=== PATIENT | female | born 1985 | race Caucasian/White ===

== ENCOUNTER 2018-03-22 17:38 | Emergency (ER) | payer OTHER ==
[2018-03-22 17:48] VITALS: BP 140/84; PULSE 90; TEMP 98.4; BMI 32.1
--- NOTE | 2018-03-22 18:20 | PDOC ---
History of Present Illness - History of Present Illness Initial Comments: 03/22/18 18:31 Patient is a 32 F, with no significant past medical history, who presents today with 2 days of right sided facial numbness and tingling. Patient states that she noticed decreased sensation to the right side of her face for the past two days. She first noticed the facial droop when she began drooling while drinking some water. She also notes a decreased ability to close eyes tightly. She also reports mild right sided headache. She denies nausea, vomiting, chest pain, shortness of breath. She denies loss of consciousness. Denies decreased sensation in her extremities. She denies history of recent trauma. Dr. Mehul Avitia - PCP <Sarah Urbina - Last Filed: 03/22/18 18:31> <Rossi Colon - Last Filed: 03/22/18 20:25> - General Chief Complaint: Facial Droop Stated Complaint: PAIN Time Seen by Provider: 03/22/18 17:59 Past History <aSrah Urbina - Last Filed: 03/22/18 18:31> - Past Medical History Anemia: No Asthma: No Cancer: No Cardiac Disorders: No CVA: No COPD: No CHF: No Dementia: No Diabetes: No GI Disorders: No Disorders: No HTN: No Hypercholesterolemia: No Liver Disease: No Seizures: No Thyroid Disease: No Other medical history: PT DENIES. - Suicide/Smoking/Psychosocial Hx Smoking History: Never smoked Hx Alcohol Use: No Drug/Substance Use Hx: No Substance Use Type: Alcohol Hx Substance Use Treatment: No <Rossi Colon - Last Filed: 03/22/18 20:25> - Past Medical History Allergies/Adverse Reactions: Allergies Allergy/AdvReac Type Severity Reaction Status Date / Time No Known Drug Allergies Allergy Verified 03/22/18 17:42 Home Medications: Ambulatory Orders No Home Medications 08/19/13 Carboxymethylcellulose Sodium [Lubricant Dry Eye Relief] 15 ml OP PRN PRN #1 bottle 03/22/18 Prednisone [Deltasone] 60 mg PO DAILY #4 tablet 03/22/18 Valacyclovir HCl [Valtrex -] 500 mg PO BID #10 tablet 03/22/18 Review of Systems - Review of Systems Comments:: 03/22/18 18:32 CONSTITUTIONAL: Absent: fever, chills, diaphoresis, generalized weakness, malaise, loss of appetite HEENT: Absent: rhinorrhea, nasal congestion, throat pain, throat swelling, difficulty swallowing, mouth swelling, ear pain, eye pain, visual changes CARDIOVASCULAR: Absent: chest pain, syncope, palpitations, irregular heart rate, lightheadedness , peripheral edema RESPIRATORY: Absent: cough, shortness of breath, dyspnea with exertion, orthopnea, wheezing, stridor, hemoptysis GASTROINTESTINAL: Absent: abdominal pain, abdominal distension, nausea, vomiting, diarrhea, constipation, melena, hematochezia GENITOURINARY: Absent: dysuria, frequency, urgency, hesitancy, hematuria, flank pain, genital pain MUSCULOSKELETAL: Absent: myalgia, arthralgia, joint swelling SKIN: Absent: rash, itching, pallor HEMATOLOGIC/IMMUNOLOGIC: Absent: easy bleeding, easy bruising, lymphadenopathy, frequent infections ENDOCRINE: Absent: unexplained weight gain, unexplained weight loss, heat intolerance, cold intolerance NEUROLOGIC: Present: Right sided headache. Right sided facial droop, Right sided facial numbness and tingling. Absent: dizziness, unsteady gait, seizure, mental status changes, bladder or bowel incontinence PSYCHIATRIC: Absent: anxiety, depression, suicidal or homicidal ideation, hallucinations. <Sarah Urbina - Last Filed: 03/22/18 18:31> *Physical Exam - Vital Signs Last Vital Signs Temp Pulse Resp BP Pulse Ox 98.4 F 90 19 140/84 100 03/22/18 17:43 03/22/18 17:43 03/22/18 17:43 03/22/18 17:43 03/22/18 17:43 - Physical Exam Comments: 03/22/18 18:35 GENERAL: Well developed, well nourished. Awake and alert. No acute distress. HEENT: Mild right facial droop, atraumatic. PERRLA, EOMI. No conjunctival pallor. Sclera are non-icteric. Moist mucous membranes. Oropharynx is clear.Right sided tongue numbness. No dental pain or abscess. NECK: Supple. Full ROM. No JVD. Carotid pulses 2+ and symmetric, without bruits. No thyromegaly. No lymphadenopathy. CARDIOVASCULAR: Regular rate and rhythm. No murmurs, rubs, or gallops. Distal pulses are 2+ and symmetric. PULMONARY: No evidence of respiratory distress. Lungs clear to auscultation bilaterally. No wheezing, rales or rhonchi. ABDOMINAL: Soft. Non-tender. Non-distended. No rebound or guarding. No organomegaly. Normoactive bowel sounds. MUSCULOSKELETAL Normal range of motion at all joints. No bony deformities or tenderness. No CVA tenderness. EXTREMITIES: No cyanosis. No clubbing. No edema. No calf tenderness. SKIN: Warm and dry. Normal capillary refill. No rashes. No jaundice. NEUROLOGICAL: Alert, awake, appropriate. Cranial nerves 2-12 intact. No deficits to light touch and temperature in face, upper extremities and lower extremities. No motor deficits in the in face, upper extremities and lower extremities. Normoreflexic in the upper and lower extremities. Normal speech. Toes are down-going bilaterally. Gait is normal without ataxia. PSYCHIATRIC: Cooperative. Good eye contact. Appropriate mood and affect. <Sarah Urbina - Last Filed: 03/22/18 18:31> - Vital Signs Last Vital Signs Temp Pulse Resp BP Pulse Ox 98.4 F 90 19 140/84 100 03/22/18 17:43 03/22/18 17:43 03/22/18 17:43 03/22/18 17:43 03/22/18 17:43 <Rossi Colon - Last Filed: 03/22/18 20:25> Medical Decision Making - Medical Decision Making 03/22/18 19:54 32-year-old female presents with right-sided facial tingling and numbness, noted to have some drooling when she drinks liquids since Friday. Patient has had no other gross focal neural deficits, except for this right sided facial tingling and numbness, she has no motor strength deficits, no drift of her extremities, she is alert and oriented 3 03/22/18 20:04 CAT scan of the head without contrast is essentially negative for any acute infarction, no hemorrhage, no mass lesion seen, no skull fracture, visualized portions of the paranasal sinuses are essentially clear. Mastoid air cells are normal. Impression Blanco's palsy Plan patient will be placed on steroids , eyedrops and encouraged follow-up with neurology <Rossi Colon - Last Filed: 03/22/18 20:25> *DC/Admit/Observation/Transfer - Attestations Scribe Attestion: 03/22/18 18:38 Documentation prepared by Sarah Urbina, acting as medical center manager for Rossi Colon MD. <Sarah Urbina - Last Filed: 03/22/18 18:31> <Rossi Colon - Last Filed: 03/22/18 20:25> Diagnosis at time of Disposition: Blanco palsy - Discharge Dispostion Disposition: HOME Condition at time of disposition: Stable - Prescriptions Prescriptions: Carboxymethylcellulose Sodium [Lubricant Dry Eye Relief] 15 ml OP PRN PRN #1 bottle PRN Reason: Dry Eyes Prednisone [Deltasone] 60 mg PO DAILY #4 tablet Valacyclovir HCl [Valtrex -] 500 mg PO BID #10 tablet - Referrals Referrals: Swati Emerson MD [Primary Care Provider] - Kana Franklin MD [Staff Physician] - - Patient Instructions Printed Discharge Instructions: DI for Blanco's Palsy Additional Instructions: please picker packer your medications at your pharmacy Please make an appointment with a neurologist return for any worsening symptoms Print Language: [place]
[2018-03-22] MEDS ORDERED: ACETAMINOPHEN 325 MG TABLET (FP) ONE (18:47)
[2018-03-22] MEDS ORDERED: ACETAMINOPHEN 500 MG TABLET (FP) PO STA (19:03)
--- NOTE | 2018-03-22 19:54 | PDOC ---
NIH Stroke Scale - Last Known Well Date/Time & Onset Date Last Known Well: 03/13/18 Time Last Known Well: 08:00 - Initial Evaluation Level of consciousness: Alert Ask patient the month and their age: Answers both correctly Ask patient to open & close eyes; make fist and let go: Obeys both correctly Best gaze (horizontal eye movement): Normal Visual field testing: No visual field loss Facial paresis (Show teeth/raise eyebrows/close eyes tight): Minor paralysis ( flattened nasolabial fold, asymmetry on smiling) Motor Function: Left Arm: Normal Motor Function: Right Arm: Normal (extends arm 90 (or 45) degrees for 10 seconds without drift Motor Function: Left Leg: Normal (extends leg 30 degrees for 5 seconds without drift) Motor Function: Right Leg: Normal (extends leg 30 degrees for 5 seconds without drift) Limb Ataxia: No ataxia Sensory(Use pinprick test arms,legs,trunk,face/side to side): Normal Best language (Describe picture, name items, read sentences): No Aphasia Dysarthria (read several words): Normal articulation Extinction and Inattention: No abnormality - Total Score NIH Stroke Scale Score: 1
[2018-03-22] MEDS ORDERED: predniSONE 20 MG TABLET (UD) PO ONE (20:13)
[2018-03-22] MEDS ORDERED: ERYTHROMYCIN 0.5% OPHTHALMIC OINTMENT 3.5 GM TUBE OD STA (20:14)
[2018-03-22] MEDS ORDERED: predniSONE 20 MG TABLET (UD) ONE (20:15)
[2018-03-22] MEDS ORDERED: ERYTHROMYCIN 0.5% OPHTHALMIC OINTMENT 3.5 GM TUBE ONE (20:18)
== END 2018-03-22 20:27 | disposition home or self-care (01) ==
LOC: JER 17:38
DX: G51.0 Bell's palsy (principal)
CPT/HCPCS: 36415; 70450-TC; 84703; 86618; 99283-25

== ENCOUNTER 2020-10-22 02:03 | Inpatient (IN) | payer OTHER ==
[2020-10-22] MEDS ORDERED: ACETAMINOPHEN INJECTION 100 ML IVPB ONE (02:57)
[2020-10-22] MEDS ORDERED: ONDANSETRON 4 MG/2 ML VIAL ONE (02:57)
[2020-10-22] MEDS ORDERED: SODIUM CHLORIDE 0.9% 500 ML INFUS.BAG IV ONE (03:04)
[2020-10-22] MEDS ORDERED: ONDANSETRON 4 MG/2 ML VIAL IVPUSH ONE (03:04)
[2020-10-22] MEDS ORDERED: ACETAMINOPHEN 1000 MG/100 ML VIAL (NON FORMULARY) IVPB ONE (03:04)
[2020-10-22 03:19] LABS: BASO % 0.6 % (0-2.0); EOS % 0.3 % (0-4.5); HEMATOCRIT 36.9 % (32.4-45.2); HEMOGLOBIN 11.8 GM/dL (10.7-15.3); LYMPH % 16.4 % (8-40); MCH 24.9 pg (25.7-33.7); MCHC 31.9 g/dl (32.0-36.0); MEAN CELL VOLUME 78.1 fl (80-96); MEAN PLT VOLUME 8.6 fl (7.5-11.1); MONO % 4.9 % (3.8-10.2); NEUT % 77.8 % (42.8-82.8); PLATELET COUNT 312 K/MM3 (134-434); RBC 4.73 M/mm3 (3.60-5.2); RDW 14.8 % (11.6-15.6); WHITE BLOOD COUNT 12.2 K/mm3 (4.0-10.0)
[2020-10-22 03:32] LABS: INR 1.04 (0.83-1.09); PROTHROMBIN TIME (PATIENT) 12.6 SEC (9.7-13.0)
[2020-10-22 03:39] LABS: PH,URINE 7.5 (5.0-8.0); URINE APPEARANCE TURBID; URINE BILIRUBIN NEGATIVE (NEGATIVE); URINE COLOR YELLOW; URINE GLUCOSE (UA) NEGATIVE (NEGATIVE); URINE KETONE NEGATIVE (NEGATIVE); URINE LEUK ESTERASE NEGATIVE (NEGATIVE); URINE NITRITE NEGATIVE (NEGATIVE); URINE PROTEIN NEGATIVE (NEGATIVE)
[2020-10-22 03:41] LABS: POTASSIUM 3.7 mmol/L (3.5-5.1)
[2020-10-22 03:43] LABS: CALCIUM 8.5 mg/dL (8.5-10.1)
[2020-10-22 03:44] LABS: ALBUMIN 3.6 g/dl (3.4-5.0); BLOOD UREA NITROGEN 12.6 mg/dL (7-18)
[2020-10-22 03:47] LABS: CREATININE 0.7 mg/dL (0.55-1.3)
[2020-10-22 03:48] LABS: BILIRUBIN,TOTAL 0.2 mg/dL (0.2-1); TOT PROT 7.5 g/dl (6.4-8.2)
[2020-10-22] MEDS ORDERED: morphine CARPU-JECT 4 MG/1 ML DISP.SYRIN IVPUSH ONE ×2 (04:27→07:56)
[2020-10-22] MEDS ORDERED: MORPHINE SULFATE 2 MG/ML VIAL ONE (04:40)
[2020-10-22] MEDS ORDERED: morphine SULFATE 4 MG/ML VIAL ONE (08:00)
[2020-10-22] MEDS ORDERED: CEFTRIAXONE 1,000 MG in DEXTROSE 5%-WATER - 50 ML IVPB ONE (10:15)
[2020-10-22] MEDS ORDERED: SODIUM CHLORIDE 1,000 ML IV SCH (11:00)
[2020-10-22] MEDS ORDERED: ONDANSETRON 4 MG/2 ML VIAL IVPUSH PRN (11:01)
[2020-10-22] MEDS ORDERED: CEFTRIAXONE 1 GM/50 ML BAG ONE (11:04)
[2020-10-22] MEDS ORDERED: MORPHINE SULFATE 2 MG/ML VIAL IVPUSH PRN (11:13)
[2020-10-22 16:08] VITALS: BMI 33.5
[2020-10-23] MEDS ORDERED: DEXTROSE 5%-WATER - 50 ML IVPB ONE (09:02)
[2020-10-23] MEDS ORDERED: cefTRIAXone SODIUM 1 GM VIAL ONE (09:02)
[2020-10-23] MEDS: ACETAMINOPHEN 1000 MG/100 ML VIAL (NON FORMULARY) IVPB PRN ×2 (09:29→20:23)
[2020-10-23 09:33] LABS: HEMATOCRIT 36.3 % (32.4-45.2); HEMOGLOBIN 11.9 GM/dL (10.7-15.3); MCH 25.6 pg (25.7-33.7); MCHC 32.6 g/dl (32.0-36.0); MEAN CELL VOLUME 78.6 fl (80-96); MEAN PLT VOLUME 8.8 fl (7.5-11.1); PLATELET COUNT 283 K/MM3 (134-434); RBC 4.63 M/mm3 (3.60-5.2); RDW 14.9 % (11.6-15.6); WHITE BLOOD COUNT 8.6 K/mm3 (4.0-10.0)
[2020-10-23 09:39] LABS: INR 1.17 (0.83-1.09); PROTHROMBIN TIME (PATIENT) 14.1 SEC (9.7-13.0)
[2020-10-23 09:42] LABS: POTASSIUM 3.8 mmol/L (3.5-5.1)
[2020-10-23] MEDS: CEFTRIAXONE 1 GM in DEXTROSE 5%-WATER - 50 ML IVPB SCH (09:54)
[2020-10-23 09:57] LABS: ALBUMIN 3.3 g/dl (3.4-5.0); CALCIUM 8.3 mg/dL (8.5-10.1)
[2020-10-23 09:58] LABS: BLOOD UREA NITROGEN 7.5 mg/dL (7-18); MAGNESIUM 2.2 mg/dL (1.8-2.4)
[2020-10-23 10:01] LABS: PHOSPHOROUS 2.7 mg/dL (2.5-4.9)
[2020-10-23 10:02] LABS: BILIRUBIN,TOTAL 1.7 mg/dL (0.2-1)
[2020-10-23 10:03] LABS: TOT PROT 7.2 g/dl (6.4-8.2)
[2020-10-23 10:05] LABS: CREATININE 0.5 mg/dL (0.55-1.3)
[2020-10-23] MEDS ORDERED: SODIUM CHLORIDE 1,000 ML IV SCH (13:15)
[2020-10-24] MEDS ORDERED: PROPOFOL 20 ML ONE ×2 (07:59→08:52)
[2020-10-24] MEDS ORDERED: PHENYLEPHRINE HCL 10 MG/1 ML SINGLE DOSE VIAL ONE (07:59)
[2020-10-24] MEDS ORDERED: ePHEDrine SULFATE 50 MG/1 ML AMPULE ONE (07:59)
[2020-10-24] MEDS ORDERED: LIDOCAINE HCL/PF 2% SDV 5ML VIAL ONE (07:59)
[2020-10-24] MEDS ORDERED: ROCURONIUM BROMIDE 50 MG/5 ML SYRINGE ONE ×2 (07:59→08:58)
[2020-10-24] MEDS ORDERED: DEXAMETHASONE SOD PHOSPHATE 4 MG/1 ML VIAL ONE (07:59)
[2020-10-24] MEDS ORDERED: MIDAZOLAM HCL 2 MG/2 ML SINGLE DOSE VIAL ONE (08:00)
[2020-10-24] MEDS ORDERED: ceFAZolin 2 GRAM PREMIX BAG IVPB ONE (08:11)
[2020-10-24] MEDS ORDERED: morphine SULFATE 4 MG/ML VIAL IVPB PRN (08:26)
[2020-10-24] MEDS ORDERED: NEOSTIGMINE METHYLSULFATE 0.5 MG/ML - 10 ML MDV ONE (08:53)
[2020-10-24] MEDS ORDERED: GLYCOPYRROLATE 0.2 MG/1 ML VIAL ONE ×2 (08:53)
[2020-10-24] MEDS ORDERED: LABETALOL HCL 5 MG/1 ML (100MG/20 ML VIAL) ONE (09:39)
[2020-10-24] MEDS ORDERED: PROMETHAZINE HCL 25 MG/1 ML VIAL IVPUSH PRN (09:56)
[2020-10-24] MEDS ORDERED: PANTOPRAZOLE SODIUM 40 MG VIAL IVPUSH SCH (10:00)
[2020-10-24] MEDS ORDERED: ENOXAPARIN NA (PORCINE) 40 MG/0.4 ML DISP.SYRIN SQ SCH (10:00)
[2020-10-24] MEDS ORDERED: ACETAMINOPHEN 1000 MG/100 ML VIAL (NON FORMULARY) IVPB PRN (10:19)
[2020-10-24] MEDS ORDERED: ONDANSETRON 4 MG/2 ML VIAL IVPUSH PRN (10:19)
[2020-10-24] MEDS ORDERED: SODIUM CHLORIDE 1,000 ML IV SCH (10:19)
[2020-10-24] MEDS: CEFTRIAXONE 1 GM in DEXTROSE 5%-WATER - 50 ML IVPB SCH (12:22)
[2020-10-24] MEDS ORDERED: CEFTRIAXONE 1 GM in DEXTROSE 5%-WATER - 50 ML IVPB SCH (14:00)
[2020-10-24 14:31] LABS: BASO % 0.1 % (0-2.0); HEMATOCRIT 36.6 % (32.4-45.2); HEMOGLOBIN 11.8 GM/dL (10.7-15.3); LYMPH % 3.1 % (8-40); MCH 25.5 pg (25.7-33.7); MCHC 32.4 g/dl (32.0-36.0); MEAN CELL VOLUME 78.7 fl (80-96); NEUT % 95.8 % (42.8-82.8); PLATELET COUNT 283 K/MM3 (134-434); RBC 4.65 M/mm3 (3.60-5.2); RDW 14.8 % (11.6-15.6)
[2020-10-24] MEDS ORDERED: cefTRIAXone SODIUM 1 GM VIAL ONE (14:32)
[2020-10-24] MEDS ORDERED: DEXTROSE 5%-WATER - 50 ML IVPB ONE (14:32)
[2020-10-24 14:39] LABS: INR 1.23 (0.83-1.09)
[2020-10-24 14:40] LABS: ACTIVATED PTT 28.6 SECONDS (25.2-36.5)
[2020-10-24 14:52] LABS: POTASSIUM 4.1 mmol/L (3.5-5.1)
[2020-10-24 14:56] LABS: BLOOD UREA NITROGEN 8.9 mg/dL (7-18); CALCIUM 8.3 mg/dL (8.5-10.1)
[2020-10-24 14:57] LABS: ALBUMIN 3.3 g/dl (3.4-5.0); MAGNESIUM 1.9 mg/dL (1.8-2.4)
[2020-10-24 15:00] LABS: CREATININE 0.6 mg/dL (0.55-1.3); PHOSPHOROUS 2.5 mg/dL (2.5-4.9)
[2020-10-24 15:02] LABS: TOT PROT 7.2 g/dl (6.4-8.2)
[2020-10-24 15:04] LABS: ANISOCYTOSIS 0; MACROCYTOSIS 0; PLATELET ESTIMATE NORMAL
[2020-10-24 15:05] LABS: BILIRUBIN,TOTAL 0.8 mg/dL (0.2-1)
[2020-10-24 15:33] VITALS: TEMP 98.6
[2020-10-24] MEDS: oxyCODONE HCL 5 MG TABLET PO PRN (18:23)
[2020-10-25] MEDS: oxyCODONE HCL 5 MG TABLET PO PRN ×2 (00:31→06:04)
[2020-10-25 06:51] VITALS: BP 117/76; PULSE 82
[2020-10-25] MEDS ORDERED: PCA PUMP NR ONE (06:52)
[2020-10-25 09:48] LABS: HEMATOCRIT 35.4 % (32.4-45.2); HEMOGLOBIN 11.6 GM/dL (10.7-15.3); MCH 25.9 pg (25.7-33.7); MCHC 32.6 g/dl (32.0-36.0); MEAN CELL VOLUME 79.3 fl (80-96); MEAN PLT VOLUME 8.7 fl (7.5-11.1); PLATELET COUNT 296 K/MM3 (134-434); RBC 4.47 M/mm3 (3.60-5.2); RDW 14.7 % (11.6-15.6); WHITE BLOOD COUNT 11.2 K/mm3 (4.0-10.0)
[2020-10-25] MEDS ORDERED: PANTOPRAZOLE 40 MG TABLET PO SCH (10:00)
[2020-10-25] MEDS ORDERED: PT OWN MED DRAWER 7, Y5N ONE (10:07)
[2020-10-25 10:13] LABS: POTASSIUM 4.4 mmol/L (3.5-5.1)
[2020-10-25 10:50] LABS: ALBUMIN 3.4 g/dl (3.4-5.0); BLOOD UREA NITROGEN 7.3 mg/dL (7-18); CALCIUM 8.7 mg/dL (8.5-10.1)
[2020-10-25 10:53] LABS: CREATININE 0.5 mg/dL (0.55-1.3)
[2020-10-25 10:55] LABS: TOT PROT 7.3 g/dl (6.4-8.2)
[2020-10-25 10:56] LABS: BILIRUBIN,TOTAL 0.6 mg/dL (0.2-1)
[2020-10-25] MEDS ORDERED: AMOX TR/POT CLAV 875MG/125MG TABLETS (FP) PO SCH (17:30)
== END 2020-10-25 11:38 | disposition home or self-care (01) | DRG 263 ==
LOC: JER 02:03 → JERBED 10:19 → J8W 15:37
PROVIDERS: ADMIT Internal Medicine; ATTEND Internal Medicine
PROC: 0FT44ZZ Resection of Gallbladder, Percutaneous Endoscopic Approach (ICD-10-PCS; principal; 2020-10-24 08:00)
DX: K80.00 Calculus of gallbladder with acute cholecystitis without obstruction (principal); E66.9 Obesity, unspecified; Z68.33 Body mass index [BMI] 33.0-33.9, adult; K76.0 Fatty (change of) liver, not elsewhere classified
CPT/HCPCS: 36415; 76705-TC; 80053; 81003; 83690; 83735; 84100; 84703; 85025; 85027; 85610; 85730; 86850; 86900; 86901; 87086; 88304-TC; 94760; 99285-25; C9803; J0131; U0003